=== PATIENT | male | born 1965 | race Two or more races ===

== ENCOUNTER → 2022-05-05 | Outpatient (CLI) | payer OTHER ==
[2022-05-05 10:31] LABS: Uric Acid 7.3 mg/dL (3.5-7.2)
== END | disposition home or self-care (01) ==
LOC: LAB 09:34
PROVIDERS: ATTEND Internal Medicine
DX: R73.03 Prediabetes (principal); M25.561 Pain in right knee; E66.09 Other obesity due to excess calories
CPT/HCPCS: 36415; 80061; 83036; 84153; 84550

== ENCOUNTER → 2022-08-06 | Outpatient (CLI) | payer OTHER | END | disposition home or self-care (01) | LOC: Rad HDHVI 10:23 | PROVIDERS: ATTEND Internal Medicine Cardiovascular Disease | DX: I10 Essential (primary) hypertension (principal); E78.5 Hyperlipidemia, unspecified | CPT/HCPCS: 93306 ==

== ENCOUNTER 2022-08-10 10:08 | Inpatient (IN) | payer OTHER ==
[2022-08-06 10:06] LABS: Basophils # (auto) 0 10 ^3/uL (0-0.2); Basophils % (auto) 0.8 % (0.0-2.0); Eosinophils # (auto) 0.5 10 ^3/uL (0-0.8); Hematocrit 43.2 % (41.0-53.0); Lymphocytes % (auto) 32.3 % (10.0-50.0); Mean Corpuscular Hgb Conc. 34.8 g/dL (32.0-36.0); Monocytes # (auto) 0.5 10 ^3/uL (0-1.3); Monocytes % (auto) 8.9 % (0.0-12.0); Nucleated Red Blood Cells % 0.4 %; Red Blood Cells 4.86 10^6/uL (4.5-5.90); Red Cell Distribution Width 13.3 % (11.8-14.3); White Blood Cell 6.1 10^3/uL (4.4-10.8)
[2022-08-06 10:19] LABS: Urine Bacteria NONE SEEN /hpf (None Seen); Urine Blood Negative /uL (Negative); Urine Specific Gravity 1.013 (1.001-1.035); Urine WBC <1 /hpf (0 - 3)
[2022-08-06 10:21] LABS: INR 1.03 (0.9-1.15); Partial Thromboplastin Time 29.1 sec (24.6-33.4)
[2022-08-06 11:11] LABS: Potassium 3.9 mmol/L (3.5-5.1)
[2022-08-06 11:18] LABS: Albumin 3.9 g/dL (3.4-5.0); Bilirubin, Total 1.2 mg/dL (0.2-1.0); Calcium 8.7 mg/dL (8.5-10.1); Total Protein 7.3 g/dL (6.4-8.2)
[~2022-08-10] VITALS: Ht 185.4 cm; Wt 128.8 kg
[2022-08-10] MEDS ORDERED: ACETAMINOPHEN IV 100 ML IV ONE (10:37)
[2022-08-10] MEDS ORDERED: CELECOXIB 100 MG CAP ONE (10:37)
[2022-08-10] MEDS ORDERED: PREGABALIN CAPSULE 75 MG CAP ONE (10:38)
[2022-08-10] MEDS ORDERED: ceFAZolin 1GM/50ML 100 ML IV ONE (10:38)
[2022-08-10] MEDS ORDERED: VANCOMYCIN HCL 1000 MG VL ONE (11:02)
[2022-08-10] MEDS ORDERED: TRANEXAMIC ACID 20 ML ONE (11:03)
[2022-08-10] MEDS ORDERED: BUPIVACAINE HCL 0 ML ONE (11:03)
[2022-08-10] MEDS ORDERED: KETOROLAC TROMETH 30 MG/ML 1ML VIAL ONE ×2 (11:10→11:13)
[2022-08-10] MEDS ORDERED: MORPHINE SULF PF 5 MG/10 ML VIAL ONE (11:12)
[2022-08-10] MEDS ORDERED: PROPOFOL 10 MG/ML 20 ML IV ONE ×3 (11:12→12:54)
[2022-08-10] MEDS ORDERED: ONDANSETRON HCL 4 MG/2 ML VIAL ONE (11:13)
[2022-08-10] MEDS ORDERED: GLYCOPYRROLATE 0.2 MG/ML 1ML VIAL ONE (11:13)
[2022-08-10] MEDS ORDERED: DexAMETHasone SOD PHOS 10MG/1ML VIAL INJ ONE (11:13)
[2022-08-10] MEDS ORDERED: LIDOCAINE 2% (LOCAL ANESTH.) PF 5ml SDV ONE (11:13)
[2022-08-10] MEDS ORDERED: BUPIVACAINE 0.25% INJ 50ML VIAL ONE (11:15)
[2022-08-10] MEDS ORDERED: ceFAZolin 1GM VL ONE (11:18)
[2022-08-10] MEDS ORDERED: SODIUM CHLORIDE LOCK 10 ML ONE (11:23)
[2022-08-10] MEDS ORDERED: MORPHINE SULFATE INJ 2 MG/ml SYRG IV PRN (13:15)
[2022-08-10] MEDS ORDERED: ONDANSETRON HCL 4 MG/2 ML VIAL IV PRN (13:15)
[2022-08-10] MEDS ORDERED: ceFAZolin 1GM/50ML 50 ML IV SCH (13:15)
[2022-08-10] MEDS ORDERED: NITROGLYCERIN 0.4 MG SL TAB SL PRN (13:15)
[2022-08-10 15:15] VITALS: BP 120/79
[2022-08-10] MEDS: LACTATED RINGER'S 1,000 ML IV SCH ×2 (15:15→23:44)
[2022-08-10] MEDS: SODIUM CHLOR 0.9% PF (SALINE LOCK) 10ML VIAL/SYR IV SCH ×2 (16:27→21:23)
[2022-08-10 17:00] VITALS: BP 118/82
[2022-08-10] MEDS: HYDROmorphone HCL 2 MG/ML VL/or syr IV PRN ×3 (17:46→23:11)
[2022-08-10] MEDS: ceFAZolin 1GM/50ML 50 ML IV SCH ×2 (17:46→22:49)
[2022-08-10] MEDS: DOCUSATE SOD 100 MG CAP PO SCH (21:12)
[2022-08-10] MEDS: OXYCODONE W/ ACETAMINOPHEN 5/325MG TABLET PO PRN (21:14)
[2022-08-10 22:00] VITALS: BP 126/76
[2022-08-11 05:00] VITALS: BP 116/62
[2022-08-11] MEDS: ceFAZolin 1GM/50ML 50 ML IV SCH (05:08)
[2022-08-11] MEDS: SODIUM CHLOR 0.9% PF (SALINE LOCK) 10ML VIAL/SYR IV SCH ×3 (05:43→22:11)
[2022-08-11] MEDS: HYDROmorphone HCL 2 MG/ML VL/or syr IV PRN ×2 (06:25→22:39)
[2022-08-11 06:30] LABS: Hematocrit 36.7 % (41.0-53.0); Hemoglobin 12.7 g/dL (13.5-17.5)
[2022-08-11 06:40] LABS: Potassium 4.2 mmol/L (3.5-5.1)
[2022-08-11 06:50] LABS: Albumin 3.3 g/dL (3.4-5.0); BUN/Creatinine Ratio 12.2 (10.0-20.0); Calcium 8.9 mg/dL (8.5-10.1); Total Protein 6.3 g/dL (6.4-8.2)
[2022-08-11 08:41] VITALS: BP 137/84
[2022-08-11] MEDS: ENOXAPARIN SOD 40 MG/0.4 ML SYRINGE SC SCH (08:56)
[2022-08-11] MEDS: DOCUSATE SOD 100 MG CAP PO SCH ×2 (08:56→22:10)
[2022-08-11] MEDS: OXYCODONE W/ ACETAMINOPHEN 5/325MG TABLET PO PRN ×3 (08:57→16:49)
[2022-08-11] MEDS: LACTATED RINGER'S 1,000 ML IV SCH (08:58)
[2022-08-11 13:01] VITALS: BP 133/63
[2022-08-11 17:14] VITALS: BP 160/84
[2022-08-11 17:29] VITALS: BP 140/82
[2022-08-11 21:48] VITALS: BP 145/83
[2022-08-12 04:50] VITALS: BP 147/77
[2022-08-12] MEDS: SODIUM CHLOR 0.9% PF (SALINE LOCK) 10ML VIAL/SYR IV SCH (05:22)
[2022-08-12 06:08] LABS: Basophils # (auto) 0 10 ^3/uL (0-0.2); Basophils % (auto) 0.4 % (0.0-2.0); Eosinophils # (auto) 0.1 10 ^3/uL (0-0.8); Eosinophils % (auto) 1.5 % (0.0-7.0); Hematocrit 34.7 % (41.0-53.0); Lymphocytes # (auto) 2.1 10 ^3/uL (0.4-5.4); Lymphocytes % (auto) 23.4 % (10.0-50.0); Mean Corpuscular Hemoglobin 31.3 pg (28.0-32.0); Mean Corpuscular Hgb Conc. 34.5 g/dL (32.0-36.0); Mean Corpuscular Volume 90.6 fL (80.0-100.0); Monocytes # (auto) 1.1 10 ^3/uL (0-1.3); Monocytes % (auto) 11.8 % (0.0-12.0); Neutrophils # (auto) 5.7 10 ^3/uL (1.6-8.6); Neutrophils % (auto) 62.9 % (37.0-80.0); Red Blood Cells 3.83 10^6/uL (4.5-5.90); Red Cell Distribution Width 13.6 % (11.8-14.3); White Blood Cell 9.1 10^3/uL (4.4-10.8)
[2022-08-12 06:24] LABS: Albumin 3.3 g/dL (3.4-5.0); Calcium 8.5 mg/dL (8.5-10.1); Potassium 3.6 mmol/L (3.5-5.1)
[2022-08-12 06:31] LABS: Bilirubin, Total 0.8 mg/dL (0.2-1.0); Total Protein 6.3 g/dL (6.4-8.2)
[2022-08-12] MEDS: HYDROmorphone HCL 2 MG/ML VL/or syr IV PRN ×2 (06:34→11:53)
[2022-08-12 07:33] LABS: BUN/Creatinine Ratio 13.4 (10.0-20.0)
[2022-08-12] MEDS: ENOXAPARIN SOD 40 MG/0.4 ML SYRINGE SC SCH (08:08)
[2022-08-12] MEDS: DOCUSATE SOD 100 MG CAP PO SCH (08:08)
[2022-08-12] MEDS: OXYCODONE W/ ACETAMINOPHEN 5/325MG TABLET PO PRN (08:09)
[2022-08-12 08:30] VITALS: BP 164/80
[2022-08-12 10:49] VITALS: BP 164/80
[2022-08-12] MEDS ORDERED: hydrALAZINE HCL 25 MG TAB PO ONE (11:00)
[2022-08-12 12:23] VITALS: BP 164/80
== END 2022-08-12 13:42 | disposition home health service (06) | DRG 470 ==
LOC: SUR 10:08 → OVERFLOW 13:08 → WEST WING 15:09
PROVIDERS: ADMIT Orthopaedic Surgery Adult Reconstructive Orthopaedic Surgery; ATTEND Internal Medicine
PROC: 0SRC0J9 Replacement of Right Knee Joint with Synthetic Substitute, Cemented, Open Approach (ICD-10-PCS; principal; 2022-08-11)
DX: M17.11 Unilateral primary osteoarthritis, right knee (principal); E66.01 Morbid (severe) obesity due to excess calories; M21.00 Valgus deformity, not elsewhere classified, unspecified site; R73.03 Prediabetes; E78.5 Hyperlipidemia, unspecified; Z82.49 Family history of ischemic heart disease and other diseases of the circulatory system; Z68.37 Body mass index [BMI] 37.0-37.9, adult
CPT/HCPCS: 36415; 73562; 80053; 80061; 81001; 82306; 83036; 84443; 85014; 85018; 85025; 85610; 85730; 86850; 86900; 86901; 97110; 97116; 97163; 97530; G0378; J0131; J0690; J1100; J1885; J2001; J2405; J2704; J3490

== ENCOUNTER → 2022-09-14 | Outpatient (CLI) | payer OTHER ==
[2022-09-14 12:27] LABS: Uric Acid 5.9 mg/dL (3.5-7.2)
== END | disposition home or self-care (01) ==
LOC: LAB 10:35
PROVIDERS: ATTEND Internal Medicine
DX: R73.03 Prediabetes (principal); E78.5 Hyperlipidemia, unspecified; E79.0 Hyperuricemia without signs of inflammatory arthritis and tophaceous disease
CPT/HCPCS: 36415; 80061; 83036; 84550

== ENCOUNTER → 2022-10-07 | Outpatient (CLI) | payer OTHER ==
[~2022-10-07] VITALS: Ht 185.4 cm; Wt 116.6 kg
[~2022-10-07] MED LIST: ADENOSINE 90 MG/30 ML INJ IV ONE; ADENOSINE 98 MG in GIVE UN-DILUTED 0 ML IV ONE
== END | disposition home or self-care (01) ==
LOC: Rad HDHVI 09:26
PROVIDERS: ATTEND Internal Medicine Cardiovascular Disease
DX: I10 Essential (primary) hypertension (principal); R06.02 Shortness of breath
CPT/HCPCS: 78452; 93005; 96374; 96375; A9500; J0153

== ENCOUNTER → 2022-10-08 | Outpatient (CLI) | payer OTHER | END | disposition home or self-care (01) | LOC: LAB 10:06 | PROVIDERS: ATTEND Internal Medicine | DX: M79.641 Pain in right hand (principal) | CPT/HCPCS: 86431 ==

== ENCOUNTER → 2023-05-17 | Outpatient (CLI) | payer OTHER ==
[2023-05-17 08:03] LABS: Basophils # (auto) 0 10 ^3/uL (0-0.2); Basophils % (auto) 0.8 % (0.0-2.0); Eosinophils # (auto) 0.5 10 ^3/uL (0-0.8); Eosinophils % (auto) 8.4 % (0.0-7.0); Hematocrit 45.1 % (41.0-53.0); Hemoglobin 15.3 g/dL (13.5-17.5); Lymphocytes # (auto) 1.8 10 ^3/uL (0.4-5.4); Lymphocytes % (auto) 28.4 % (10.0-50.0); Mean Corpuscular Hemoglobin 30.7 pg (28.0-32.0); Mean Corpuscular Hgb Conc. 33.9 g/dL (32.0-36.0); Mean Corpuscular Volume 90.6 fL (80.0-100.0); Monocytes # (auto) 0.6 10 ^3/uL (0-1.3); Monocytes % (auto) 10.1 % (0.0-12.0); Neutrophils # (auto) 3.3 10 ^3/uL (1.6-8.6); Neutrophils % (auto) 52.3 % (37.0-80.0); Red Blood Cells 4.97 10^6/uL (4.5-5.90); Red Cell Distribution Width 13.2 % (11.8-14.3); White Blood Cell 6.2 10^3/uL (4.4-10.8)
[2023-05-17 08:36] LABS: Creatinine, Urine 202.91 mg/dL (30.0-125.0)
[2023-05-17 08:38] LABS: Triglycerides 95 mg/dL (< 150)
[2023-05-17 08:39] LABS: LDL Cholesterol 150 mg/dL (< 100)
[2023-05-17 08:40] LABS: Cholesterol 223 mg/dL (< 200); HDL Cholesterol 58 mg/dL (40-59)
== END | disposition home or self-care (01) ==
LOC: LAB 07:39
PROVIDERS: ATTEND Internal Medicine
DX: Z12.11 Encounter for screening for malignant neoplasm of colon (principal); R73.03 Prediabetes; D64.9 Anemia, unspecified
CPT/HCPCS: 36415; 80061; 82043; 82306; 82570; 83036; 85025; 86431